=== PATIENT | male | born 1975 | race American Indian/Alaskan Native ===

== ENCOUNTER 2017-03-23 19:45 | Emergency (ER) | payer SELFPAY ==
[2017-03-23 21:20] VITALS: BP 148/94
[2017-03-24] MEDS ORDERED: ROCEPHIN IM ONE (01:35)
[2017-03-24] MEDS ORDERED: TYLENOL PO ONE (01:35)
[2017-03-24] MEDS ORDERED: XYLOCAINE 1% MPF 5 mL INFILTRATI ONE (01:35)
--- NOTE | 2017-03-24 02:09 | Emergency Department Report ---
ED ENT HPI - General Chief complaint: Sore Throat Stated complaint: SORE THROAT, CHEST PAIN Time Seen by Provider: 03/24/17 01:23 Source: patient Mode of arrival: Ambulatory Limitations: No Limitations - History of Present Illness Initial comments: 42 yo male who comes in today due to dysphagia and fever times four days. He admits to a history of strep throat, but denies any other pertinent past medical history. Denies sick contacts. MD complaint: sore throat, difficulty swallowing Onset/Timin -: days(s) Location: throat Quality: aching, sharp Consistency: constant Improves with: none Worsens with: swallowing Associated Symptoms: fever, pain with swallowing, sore throat - Related Data Previous Rx's Medication Instructions Recorded Last Taken Type Amoxicillin [Amoxicillin TAB] 875 mg PO BID #20 tablet 03/24/17 Unknown Rx Allergies Allergy/AdvReac Type Severity Reaction Status Date / Time No Known Allergies Allergy Unverified 03/23/17 21:19 ED Dental HPI - General Chief complaint: Sore Throat Stated complaint: SORE THROAT, CHEST PAIN Time Seen by Provider: 03/24/17 01:23 Source: patient Mode of arrival: Ambulatory Limitations: No Limitations - History of Present Illness Onset/Timin -: days(s) Severity: moderate Quality: aching, sharp Consistency: constant Improves with: none Worsens with: swallowing - Related Data Previous Rx's Medication Instructions Recorded Last Taken Type Amoxicillin [Amoxicillin TAB] 875 mg PO BID #20 tablet 03/24/17 Unknown Rx Allergies Allergy/AdvReac Type Severity Reaction Status Date / Time No Known Allergies Allergy Unverified 03/23/17 21:19 ED Review of Systems ROS: Stated complaint: SORE THROAT, CHEST PAIN Other details as noted in HPI Constitutional: fever Eyes: denies: eye pain, eye discharge, vision change ENT: as per HPI Respiratory: denies: cough, shortness of breath, wheezing Cardiovascular: denies: chest pain, palpitations Endocrine: no symptoms reported Gastrointestinal: denies: abdominal pain, nausea, diarrhea Genitourinary: denies: urgency, dysuria Musculoskeletal: denies: back pain, joint swelling, arthralgia Skin: denies: rash, lesions Neurological: denies: headache, weakness, paresthesias Psychiatric: denies: anxiety, depression Hematological/Lymphatic: denies: easy bleeding, easy bruising ED Past Medical Hx - Past Medical History Previous Medical History?: No - Surgical History Past Surgical History?: No - Social History Smoking Status: Never Smoker Substance Use Type: None - Medications Home Medications: Home Medications Medication Instructions Recorded Confirmed Last Taken Type Amoxicillin [Amoxicillin TAB] 875 mg PO BID #20 tablet 03/24/17 Unknown Rx ED Physical Exam - General Limitations: No Limitations General appearance: alert, in no apparent distress - Head Head exam: Present: atraumatic, normocephalic - Eye Eye exam: Present: normal appearance - ENT ENT exam: Present: other (pharyngeal erythema ) - Neck Neck exam: Present: lymphadenopathy (anterior cervical) - Respiratory Respiratory exam: Present: normal lung sounds bilaterally. Absent: respiratory distress - Cardiovascular Cardiovascular Exam: Present: tachycardia - Extremities Exam Extremities exam: Present: normal inspection - Back Exam Back exam: Present: normal inspection - Neurological Exam Neurological exam: Present: alert, oriented X3 - Psychiatric Psychiatric exam: Present: normal affect, normal mood ED Course Vital Signs 03/23/17 21:17 Temperature 100.8 F H Pulse Rate 101 H Blood Pressure 148/94 O2 Sat by Pulse 98 Oximetry Critical care attestation.: If time is entered above; I have spent that time in minutes in the direct care of this critically ill patient, excluding procedure time. ED Disposition Clinical Impression: Acute streptococcal pharyngitis, Fever Disposition: - TO HOME OR SELFCARE Is pt being admited?: No Does the pt Need Aspirin: No Condition: Stable Instructions: Strep Throat (ED), Fever in Adults (ED) Additional Instructions: Take medicine as prescribed. May take tylenol 650 mg by mouth every 6-8 hours as needed for temperature greater than 100.4. Avoid sharing drinks with or eating until resolved. Prescriptions: Amoxicillin [Amoxicillin TAB] 875 mg PO BID #20 tablet Referrals: PRIMARY CARE,MD [Primary Care Provider] - 3-5 Days
== END 2017-03-24 02:50 | disposition home or self-care (01) ==
LOC: ED 19:45
DX: J02.0 Streptococcal pharyngitis (principal)
CPT/HCPCS: 87400; 87430; 96372; 99282; J0696